=== PATIENT | female | born 1985 | race Caucasian/White ===

== ENCOUNTER 2024-09-26 13:29 | Day surgery (SDC) | payer BC ==
[2024-09-26] MEDS ORDERED: Xylocaine-Mpf 2% 5 Ml Vial IJ ONE (13:30)
[2024-09-26 13:39] LABS: HCG URINE TEST NEGATIVE (NEGATIVE)
[2024-09-26] MEDS ORDERED: DIPRIVAN 200 MG/20 ML IV ONE ×2 (14:59→15:10)
--- NOTE | 2024-09-26 16:49 | XRAY ---
Indication: Bilateral L4-S1 MBB. Intraoperative fluoroscopy provided for 22 seconds. 2 digital spot image submitted for interpretation demonstrates posterior needle tips projecting over the expected left and right L4-S1 nerve roots. Correlate with intraoperative findings/report.
--- NOTE | 2024-09-26 17:05 | XRAY ---
22 seconds of fluoroscopy was used in surgery for a bilateral L4-S1 MBB.
== END 2024-09-26 15:36 ==
LOC: SDC-PAIN 13:29
PROVIDERS: ATTEND Psychiatry & Neurology Pain Medicine
DX: M47.816 Spondylosis without myelopathy or radiculopathy, lumbar region (principal)
CPT/HCPCS: 64493; 64494; 72020; 77002; 81025; J2704

== ENCOUNTER 2024-11-14 11:59 | Day surgery (SDC) | payer BC ==
[2024-11-14] MEDS ORDERED: Depo-Medrol 40 MG/ML IM ONE (12:00)
[2024-11-14] MEDS ORDERED: BUPIVACAINE 0.5% VIAL IJ ONE (12:00)
[2024-11-14 12:13] LABS: HCG URINE TEST NEGATIVE (NEGATIVE)
[2024-11-14] MEDS ORDERED: propofoL IV ONE ×2 (13:43→13:53)
--- NOTE | 2024-11-14 16:28 | XRAY ---
Indication: Bilateral L4-S1 MBB. Intraoperative fluoroscopy provided for 14 seconds. Single digital spot image submitted for interpretation demonstrates posterior needle tips projecting over expected left and right L4-S1 nerve roots. Correlate with intraoperative findings/report.
--- NOTE | 2024-11-14 16:43 | XRAY ---
14 seconds of fluoroscopy was used in surgery for a bilateral L4-S1 MBB.
== END 2024-11-14 14:12 | disposition home or self-care (01) ==
LOC: SDC-PAIN 11:59
PROVIDERS: ATTEND Psychiatry & Neurology Pain Medicine
DX: M47.816 Spondylosis without myelopathy or radiculopathy, lumbar region (principal)
CPT/HCPCS: 64493; 64494; 72020; 77002; 81025; J2704

== ENCOUNTER 2024-12-12 12:19 | Day surgery (SDC) | payer BC ==
[2024-12-12] MEDS ORDERED: methylPREDNISolone acetate IM ONE (12:20)
[2024-12-12] MEDS ORDERED: BUPIVACAINE 0.5% VIAL IJ ONE (12:20)
[2024-12-12] MEDS ORDERED: LIDOCAINE HCL 1% 50 MG/5 ML VL IJ ONE (12:20)
[2024-12-12] MEDS ORDERED: Lactated Ringers 500 ML IV ONE (12:33)
[2024-12-12 12:45] LABS: HCG URINE TEST NEGATIVE (NEGATIVE)
[2024-12-12] MEDS ORDERED: propofoL IV ONE ×2 (13:48→13:54)
[2024-12-12] MEDS ORDERED: Xylocaine-Mpf 2% 5 Ml Vial ONE (13:50)
--- NOTE | 2024-12-12 14:35 | XRAY ---
Indication: Left L4-S1 RFA. Intraoperative fluoroscopy provided for 22 seconds. 3 digital spot image submitted for interpretation demonstrates posterior needle tips projecting over expected left L4-S1 nerve roots. Correlate with intraoperative findings/report.
--- NOTE | 2024-12-12 15:20 | XRAY ---
22 seconds of fluoroscopy was used in surgery for a left L4-S1 RFA.
== END 2024-12-12 14:22 | disposition home or self-care (01) ==
LOC: SDC-PAIN 12:19
PROVIDERS: ATTEND Psychiatry & Neurology Pain Medicine
DX: M47.817 Spondylosis without myelopathy or radiculopathy, lumbosacral region (principal)
CPT/HCPCS: 64635; 64636; 72100; 77002; 81025; J1010; J2704

== ENCOUNTER 2024-12-13 10:34 | Day surgery (SDC) | payer BC ==
[2024-12-13] MEDS ORDERED: methylPREDNISolone acetate IM ONE (10:35)
[2024-12-13] MEDS ORDERED: LIDOCAINE HCL 1% 50 MG/5 ML VL IJ ONE (10:35)
[2024-12-13] MEDS ORDERED: BUPIVACAINE 0.5% VIAL IJ ONE (10:35)
[2024-12-13] MEDS ORDERED: Lactated Ringers 500 ML IV ONE (10:55)
[2024-12-13 11:14] LABS: HCG URINE TEST NEGATIVE (NEGATIVE)
[2024-12-13] MEDS ORDERED: propofoL IV ONE ×2 (12:04→12:11)
--- NOTE | 2024-12-13 20:59 | XRAY ---
Indication: Right L4-S1 RFA. Intraoperative fluoroscopy provided for 22 seconds. 3 digital spot image submitted for interpretation demonstrates posterior needle tips projecting over expected right L4-S1 nerve roots. Correlate with intraoperative findings/report.
--- NOTE | 2024-12-13 21:54 | XRAY ---
22 seconds of fluoroscopy was used in surgery for a right L4-S1 RFA.
== END 2024-12-13 12:32 | disposition home or self-care (01) ==
LOC: SDC-PAIN 10:34
PROVIDERS: ATTEND Psychiatry & Neurology Pain Medicine
DX: M47.816 Spondylosis without myelopathy or radiculopathy, lumbar region (principal)
CPT/HCPCS: 64635; 64636; 72100; 77002; 81025; J1010; J2704